=== PATIENT | male | born 1955 | race Caucasian/White ===

== ENCOUNTER 2022-07-14 06:17 | Day surgery (SDC) | payer MEDICARE, OTHER ==
[~2022-07-14 06:17] MED LIST: Acetaminophen 325 MG Tab PO SCH; Lidocaine 1% 5 ML VIAL ONE; Lidocaine 1%/Sod Bicarbonate in NS 8.4% 1 ML Syringe IDERM PRN; Midazolam 1 MG/ML 2 ML SDV ONE; Morphine 8 MG, EPINEPHrine 0.3 MG, Cefuroxime 750 MG, Ketorolac 30 MG, Sodium Chloride ... PRN; Pregabalin 25 MG Cap PO SCH; Propofol 200 MG/20 ML SDV ONE; Sodium Chloride 0.9% 10 ML Syringe FLUSH PRN; Sodium Chloride 0.9% 10 ML Syringe FLUSH SCH; fentaNYL 100 MCG/2 ML SDV ONE; oxyCODONE ER 10 MG TAB.ER PO SCH
[2022-07-14] MEDS: Lactated Ringers 1,000 ML IV SCH ×2 (06:20→11:10)
[2022-07-14] MEDS ORDERED: Tranexamic Acid 1,000 MG/10 ML Vial ONE (06:20)
[2022-07-14] MEDS ORDERED: Vancomycin 1 GM SDV ONE (06:20)
[2022-07-14] MEDS ORDERED: ceFAZolin 2 GM Vial ONE (07:25)
[2022-07-14] MEDS ORDERED: Lidocaine 1% 5 ML VIAL ONE (07:28)
[2022-07-14] MEDS ORDERED: Propofol 200 MG/20 ML SDV ONE (07:41)
[2022-07-14] MEDS ORDERED: Phenylephrine HCl In 0.9% NaCl 1 MG/10 ML Vial ONE (07:48)
[2022-07-14] MEDS ORDERED: Ropivacaine 0.5% 5 MG/ML 30 ML SDV ONE (08:52)
[2022-07-14] MEDS ORDERED: EPINEPHrine 1 MG/ML SDV ONE (08:52)
[2022-07-14] MEDS ORDERED: oxyCODONE 5 MG Tab PO ONE (09:32)
[2022-07-14] MEDS ORDERED: Ondansetron 4 MG/2 ML SDV IVPUSH ONE (12:22)
[2022-07-14] MEDS ORDERED: HYDROmorphone 0.5 MG/0.5 ML Syringe IVPUSH PRN (15:17)
[2022-07-14] MEDS ORDERED: Ondansetron 4 MG/2 ML SDV IVPUSH PRN (15:17)
[2022-07-14] MEDS ORDERED: fentaNYL 100 MCG/2 ML SDV IVPUSH PRN (15:17)
== END 2022-07-14 14:45 | disposition home or self-care (01) ==
LOC: JD.SDS 06:17 → EDSEX 07:30 → JD.SDS 14:45
PROVIDERS: ATTEND Orthopaedic Surgery
DX: M17.0 Bilateral primary osteoarthritis of knee (principal); I10 Essential (primary) hypertension; E11.9 Type 2 diabetes mellitus without complications; E78.5 Hyperlipidemia, unspecified; E66.9 Obesity, unspecified; Z68.31 Body mass index [BMI] 31.0-31.9, adult; Z79.899 Other long term (current) drug therapy; Z79.82 Long term (current) use of aspirin; Z79.84 Long term (current) use of oral hypoglycemic drugs; Z98.890 Other specified postprocedural states
CPT/HCPCS: 0055T; 27447; 73560; 97110; 97116; 97161; A9270; C1713; C1776; J0171; J0690; J0697; J1885; J2250; J2270; J2405; J2704; J2795; J3010; J3370; J7120; 01402; 64450; 76942